=== PATIENT | male | born 2005 | race African-American/Black ===

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

== ENCOUNTER 2023-07-11 00:56 | Emergency (ER) | payer OTHER ==
[2023-07-11] MEDS ORDERED: NS 1,000 ML IV ONE (10:26)
[2023-07-11] MEDS ORDERED: Iohexol 300 - 100 ML VIAL IV ONE (13:57)
[2023-07-11] MEDS ORDERED: NS 60 ML IV ONE (13:57)
[2023-08-31 09:38] LABS: URINE WBC 0 /hpf (0-3)
[2023-08-31 10:38] LABS: HEMATOCRIT 40.9 % (36.0-47.0); HEMOGLOBIN 14.2 g/dL (12.5-16.1); MEAN PLATELET VOLUME 10.8 fl (7.4-10.4); RED BLOOD COUNT 4.64 M/mm3 (4.20-5.60); WHITE BLOOD COUNT 13.4 K/mm3 (4.8-10.8)
[2023-08-31 10:46] LABS: ALBUMIN 4.3 g/dL (3.5-5.0); ALCOHOL IN-HOUSE < 10 mg/dL (<10); ALT/SGPT 26 U/L (0-55); AST-SGOT 28 U/L (5-34); CALCIUM 9.3 mg/dL (8.3-10.5); CARBON DIOXIDE 21 mmol/L (22-29); GLUCOSE 111 mg/dL (75-110); LIPASE 13 U/L (8-78); SODIUM 142 mmol/L (136-145); TOTAL BILIRUBIN 0.4 mg/dL (0.2-1.2); TOTAL PROTEIN 6.9 g/dL (6.4-8.3)
[2023-08-31 10:55] LABS: URINE APPEARANCE CLEAR (CLEAR); URINE BILIRUBIN NEGATIVE (NEGATIVE); URINE BLOOD TRACE (NEGATIVE); URINE COLOR YELLOW (YELLOW); URINE GLUCOSE NEGATIVE (NEGATIVE); URINE KETONE NEGATIVE (NEGATIVE); URINE LEUKOCYTE ESTERASE NEGATIVE (NEGATIVE); URINE NITRATE NEGATIVE (NEGATIVE); URINE PROTEIN(semi-quant) NEGATIVE (NEGATIVE)
== END 2023-07-11 03:18 ==
LOC: ED 00:56
PROVIDERS: Family Medicine
DX: R11.2 Nausea with vomiting, unspecified (principal); R10.9 Unspecified abdominal pain
CPT/HCPCS: J7030; Q9967